=== PATIENT | male | born 1955 | race Caucasian/White ===

== ENCOUNTER 2016-12-21 20:53 | Emergency (ER) | payer MEDICARE, BC, OTHER ==
--- NOTE | ~2016-12-21 | EHP ---
ER History and Physical [place] [id number] [facility] [address] NAME: TEMO MADRIGAL : 55 STATUS : DEP ER PAT#: [id number] AGE: 61 ADM/REG DATE : 12/21/16 MR#: [id number] REPORT SERV DATE: 01/25/17 DICTATED BY: MANNY COLLINS DATE: 01/24/17 REPORT STATUS : Draft TRANSCRIBED BY: MODL DATE: 01/24/17 ADDENDUM: PHYSICAL EXAMINATION: GENERAL: He was alert, mildly combative, but nontoxic appearing. EYES: His eyes were equal and reactive. ENT: Normal. RESPIRATORY: Clear to auscultation bilaterally. CARDIOVASCULAR: Regular rate and rhythm. ABDOMEN: Soft, nontender with normal bowel sounds. MUSCULOSKELETAL: No deformities were noted. SKIN: Warm and dry. NEURO: The patient was not cooperative with full neuro exam, but I did not see any apparent deficits. DC/LOLA Manny Collins M.D. / [id number] CC: Vannesa Michael
[~2016-12-21 20:53] MED LIST: ATV1 PO; CITRACAL PO; LAMICTAL10 PO; LAMICTAL200 MG PO; VITAMIN D31000 UNIT PO
[2016-12-21 22:29] LABS: BASOPHILS 0.2 %; BASOPHILS ABSOLUTE 0.03 10/3/uL (0.0-0.16); EOSINOPHILS 0 %; HEMATOCRIT 38.3 % (40.0-51.0); HEMOGLOBIN 13.3 g/dL (13.6-17.8); IMMATURE GRANULOCYTES 0.3 %; IMMATURE GRANULOCYTES ABSOLUTE 0.04 10/3/uL (0.0-0.11); LYMPHOCYTES 6.9 %; LYMPHOCYTES ABSOLUTE 0.87 10/3/uL (0.67-4.30); MEAN CORPUS HGB CONC 34.7 g/dL (32.0-36.0); MEAN CORPUSCULAR HEMOGLOB 30.8 pg (26.0-34.0); MEAN CORPUSCULAR VOLUME 88.7 fL (80-100); MEAN PLATELET VOLUME 8.4 fL (9.2-13.0); MONOCYTES 9.6 %; PLATELET COUNT 408 10/3/uL (150-400); RBC DISTRIBUTION WIDTH 12.8 % (12.0-16.0); RED CELL COUNT 4.32 10/6/uL (4.7-6.1); WHITE BLOOD CELLS 12.5 10/3/uL (4.5-10.5)
[2016-12-21 22:31] LABS: MANUAL DIFF NO %
[2016-12-21 22:44] LABS: A/G RATIO 1.1 (0.7-1.9); ALBUMIN 3.7 G/DL (3.5-5.0); ALKALINE PHOSPHATASE 84 U/L (45-117); BUN (BLOOD UREA NITROGEN) 20 MG/DL (6-23); CALCIUM, SERUM 8.7 MG/DL (8.5-10.4); CHLORIDE, SERUM 100 MMOL/L (96-112); CO2 (CARBON DIOXIDE) 28 MMOL/L (24-34); CREATININE 1.01 MG/DL (0.70-1.30); GFR AFRICAN AMERICAN 93 ML/MIN (>=60); GFR NON AFRICAN AMERICAN 80 ML/MIN (>=60); GLOBULIN 3.5 G/DL (2.5-4.1); GLUCOSE, SERUM 123 MG/DL (60-99); POTASSIUM, SERUM 3.5 MMOL/L (3.5-5.3); SGOT(AST) 46 U/L (5-40); SGPT(ALT) 45 U/L (5-65); SODIUM, SERUM 140 MMOL/L (135-148); TOTAL BILIRUBIN 0.3 MG/DL (0-1.2); TOTAL PROTEIN 7.2 G/DL (6.0-8.5)
[2016-12-21 22:45] LABS: BAND NEUTROPHILS 1 %; ER DIFF TAT 0 Hrs 20 Mins; LYMPHOCYTES 9 %; LYMPHOCYTES ABSOLUTE (CALC) 1.13 10/3/uL (0.67-4.30); MONOCYTES 5 %; MONOCYTES ABSOLUTE (CALC) 0.63 10/3/uL (0.21-1.20); NEUTROPHILS ABSOLUTE (CALC) 10.75 10/3/uL (2.02-8.40); SEGMENTED NEUTROPHIL (0) 85 %; TOTAL NUCLEATED CELLS 100
[2016-12-21 22:46] LABS: PLATELET ESTIMATE SLT INC (ADEQUATE); RBC MORPHOLOGY NORM (NORMAL)
[2016-12-22 00:17] LABS: ASCORBIC ACID (UR NOT ORDER) 40 (NEG); BILIRUBIN, URINE NEGATIVE (NEG); ER URINALYSIS TAT 0 Hrs 00 Mins; KETONE, URINE TRACE MG/DL (NEG); LEUKOCYTE ESTERASE(NOT OR NEG (NEG); NITRITE (URINE) NEG (NEG); WBC (NOT ORDERED) (RFLEX) 2 (0-5)
[2017-01-19] MEDS ORDERED: PROZAC PO (12:46)
[2017-01-19] MEDS ORDERED: ATV1 PO (12:47)
[2017-03-24] MEDS ORDERED: B121000P IM (10:10)
[2017-03-24] MEDS ORDERED: LAMICTAL25 PO (10:12)
[2017-03-24] MEDS ORDERED: V5 PO (10:14)
[2017-03-24] MEDS ORDERED: PROZ10 PO (10:16)
== END 2016-12-22 01:02 | disposition home or self-care (01) ==
LOC: ER 20:53
PROVIDERS: Emergency Medicine
DX: G40.909 Epilepsy, unspecified, not intractable, without status epilepticus (principal); K21.9 Gastro-esophageal reflux disease without esophagitis; Z88.8 Allergy status to other drugs, medicaments and biological substances; Z91.038 Other insect allergy status; Z79.899 Other long term (current) drug therapy
CPT/HCPCS: 70450; 80053; 81001; 85025; 96372; 96374; 96375; 99285; J1630; J3010

== ENCOUNTER 2016-12-22 16:57 | Emergency (ER) | payer MEDICARE, BC, OTHER ==
[2016-12-22 15:19] LABS: BASOPHILS 0.6 %; BASOPHILS ABSOLUTE 0.04 10/3/uL (0.0-0.16); EOSINOPHILS 0 %; ER CBC TAT 0 Hrs 07 Mins; HEMATOCRIT 38.4 % (40.0-51.0); HEMOGLOBIN 13.2 g/dL (13.6-17.8); IMMATURE GRANULOCYTES 0.1 %; MANUAL DIFF NO %; MEAN CORPUS HGB CONC 34.4 g/dL (32.0-36.0); MEAN CORPUSCULAR HEMOGLOB 30.6 pg (26.0-34.0); MEAN CORPUSCULAR VOLUME 88.9 fL (80-100); MEAN PLATELET VOLUME 8.3 fL (9.2-13.0); MONOCYTES 20.3 %; MONOCYTES ABSOLUTE 1.44 10/3/uL (0.21-1.20); PLATELET COUNT 441 10/3/uL (150-400); RBC DISTRIBUTION WIDTH 13.1 % (12.0-16.0); RED CELL COUNT 4.32 10/6/uL (4.7-6.1); WHITE BLOOD CELLS 7.1 10/3/uL (4.5-10.5)
[2016-12-22 15:20] LABS: IMMATURE GRANULOCYTES ABSOLUTE 0.01 10/3/uL (0.0-0.11)
[2016-12-22 15:30] LABS: BUN (BLOOD UREA NITROGEN) 15 MG/DL (6-23); CALCIUM, SERUM 8.6 MG/DL (8.5-10.4); CHLORIDE, SERUM 99 MMOL/L (96-112); CO2 (CARBON DIOXIDE) 31 MMOL/L (24-34); CREATININE 0.92 MG/DL (0.70-1.30); GFR AFRICAN AMERICAN 104 ML/MIN (>=60); GFR NON AFRICAN AMERICAN 89 ML/MIN (>=60); GLUCOSE, SERUM 115 MG/DL (60-99); POTASSIUM, SERUM 3.3 MMOL/L (3.5-5.3); SODIUM, SERUM 138 MMOL/L (135-148)
[2016-12-22 15:42] LABS: LACTATE 1.1 MMOL/L (0.3-2.4)
[2016-12-22 15:58] LABS: BAND NEUTROPHILS 1 %; ER DIFF TAT 0 Hrs 46 Mins; LYMPHOCYTES 26 %; LYMPHOCYTES ABSOLUTE (CALC) 1.85 10/3/uL (0.67-4.30); MONOCYTES 12 %; MONOCYTES ABSOLUTE (CALC) 0.85 10/3/uL (0.21-1.20); SEGMENTED NEUTROPHIL (0) 61 %; TOTAL NUCLEATED CELLS 100
[2016-12-22 15:59] LABS: PLATELET ESTIMATE SLT INC (ADEQUATE)
[2016-12-22 16:00] LABS: RBC MORPHOLOGY NORM (NORMAL)
[2016-12-22 16:43] LABS: PROCALCITONIN <0.05 ng/mL (<0.5)
[2017-01-19] MEDS ORDERED: PROZAC PO (12:46)
[2017-01-19] MEDS ORDERED: ATV1 PO (12:47)
[2017-03-24] MEDS ORDERED: B121000P IM (10:10)
[2017-03-24] MEDS ORDERED: LAMICTAL25 PO (10:12)
[2017-03-24] MEDS ORDERED: V5 PO (10:14)
[2017-03-24] MEDS ORDERED: PROZ10 PO (10:16)
== END 2016-12-22 18:07 | disposition home or self-care (01) ==
LOC: ER 16:57
PROVIDERS: Emergency Medicine
DX: L03.012 Cellulitis of left finger (principal); Z91.038 Other insect allergy status; Z79.899 Other long term (current) drug therapy
CPT/HCPCS: 80048; 83605; 84145; 85025; 87040; 96374; 99285; J3370